=== PATIENT | male | born 1955 | race Caucasian/White ===

== ENCOUNTER → 2025-03-16 08:39 | Outpatient (REF) | payer MEDICARE, OTHER, SELFPAY ==
[2025-03-16 10:00] LABS: % Basophils 0.5 % (0-2); % Eosinophils 3.4 % (0-6); % Immature Granulocytes 0.5 % (0-0.5); % Lymphocytes 21.6 % (20.5-51.1); % Monocytes 12.2 % (1.7-9.3); % Neutrophils 61.8 % (42.2-75.2); Absolute Eosinophils 0.3 10^3/uL (0-0.7); Absolute Lymphocytes 1.6 10^3/uL (1.2-3.4); Absolute Monocytes 0.9 10^3/uL (0.1-0.6); Absolute Neutrophils 4.5 10^3/uL (1.4-6.5); Hematocrit 37.4 % (39.0-52.0); Hemoglobin 12.8 g/dL (13.0-18.0); Mean Corp Hgb Conc. 34.2 g/dL (33.0-37.0); Mean Corpuscular Hgb 32.2 pg (27.0-31.0); Mean Platelet Volume 10.2 fL (7.4-10.4); Nucleated Red Blood Cells % 0 % (-); Platelet Count 160 10^3/uL (130-400); Red Blood Cell Count 3.98 10^6/uL (4.70-6.10); Red Cell Dist. Width 12.2 % (11.5-14.5); White Blood Cell Count 7.4 10^3/uL (4.8-10.8)
[2025-03-16 10:13] LABS: ALT (SGPT) 24 U/L (0-50); AST (SGOT) 25 U/L (17-59); Albumin 4.2 g/dl (3.5-5.0); Alkaline Phosphatase 56 U/L (38-126); Blood Urea Nitrogen 27 mg/dl (9-20); Calcium 9.8 mg/dl (8.4-10.2); Carbon Dioxide 24 mmol/L (22-30); Chloride 108 mmol/L (98-107); Glucose 161 mg/dl (70-99); INR 1.01; Magnesium 1.6 mg/dl (1.6-2.3); PT 13.8 Sec (11.4-14.6); Potassium 4.6 mmol/L (3.5-5.1); Sodium 142 mmol/L (135-145); Total Bilirubin 0.7 mg/dl (0.2-1.3); Total Protein 6.8 g/dl (6.3-8.2); eGFR 54.75
== END ==
LOC: SDSPAT 08:39
PROVIDERS: ATTENDING PHYSICIAN Internal Medicine Cardiovascular Disease; FAMILY PHYSICIAN Family Medicine; OTHER PHYSICIAN Internal Medicine Cardiovascular Disease
DX: I48.19 Other persistent atrial fibrillation (principal)
CPT/HCPCS: 36415; 75572; 80053; 83735; 85025; 85610; 86850; 86900; 86901; 93005; Q9967

== ENCOUNTER 2025-03-30 07:24 | Day surgery (SDC) | payer MEDICARE, OTHER, SELFPAY ==
[2025-03-16 09:24] VITALS: BMI 37.3
[2025-03-30] VITALS (12 sets, daily range): BP systolic 113–171; BP diastolic 67–82
--- NOTE | 2025-03-30 08:01 | ITS.CL.ABL ---
Ecologist - Ablation
Ablation
Procedure Report:
ELECTROPHYSIOLOGIC STUDY AND POSSIBLE ABLATION
DATE: March 30, 2025
Primary Care Provider: Dr Ivan Tucker
Primary As400 Administrator: Dr. Hawa Gibson
INDICATION:
Symptomatic Atrial Fibrillation.
Persistent
HISTORY: See H and P.
Symptomatic AF, poorly controlled with attempted medical therapy
HAS-BLED: 2
Age
Abnormal Renal Function
CHADSVASc: 4
CHF, NYHA Class 2, LVEF 45% (HFrEF)
HTN
Age
DM
PRESENTING RHYTHM: SR
HISTORY: See H and P.
Symptomatic AF, poorly controlled with attempted medical therapy.
He was referred for electrophysiologic consultation from Dr. Hawa Gibson regarding symptomatic atrial fibrillation.
Atrial fibrillation has been associated with a clinical syndrome of congestive heart failure, HFrEF.
He is currently treated with amiodarone for rhythm control.�
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
There is concern given his age regarding long-term toxicity effects of amiodarone and he is referred for electrophysiologic evaluation to consider PVI.
CHADSAVASc =� 4 (CHF, HTN, Age, DM)
He has been maintained on Eliquis 5 mg twice daily for atrial fibrillation related thromboembolic risk reduction.
He is treated with amlodipine for hypertension.
He has a noninfarct related cardiomyopathy with LVEF on echocardiogram of 45%, done while he is in atrial fibrillation.�
Left atrium is noted to be moderately dilated and the right atrium is mildly dilated.� There is mild to moderate aortic stenosis with peak and mean gradients of 30 and 18 mmHg. There was concern for possible amyloid cardiac involvement and is noted
that an amyloid scan was performed and was negative. This was August 02, 2024.
ANTIARRHYTHMIC DRUG: Amiodarone
ANTICOAGULATION: Eliquis 5 mg twice daily
'TIME-OUT': called and confirmed.
SEDATION/ANESTHESIA: provided via the anesthesia department using general anesthesia.
PROCEDURE:
Ultrasound Guidance with real-time visualization of needle insertion and vessel patency performed by ia for femoral venous Vascular Access.
Under real-time US guidance, the needle was advanced with negative pressure into the vein. The needle was seen entering the vessel lumen with a good return of dark red flow, the syringe was removed, non-pulsatile, dark red blood low was noted and
the wire was passed without difficulty, then the needle was removed. US confirmed the wire was in the vein, not going into an artery,
Images were taken and saved for the patient's permanent record. Imaging findings typical femoral venous anatomy. Direct visualization of needle puncture into the femoral vein was observed and recorded.
A decapolar CS catheter was placed within the CS for mapping and pacing.
The intracardiac ultrasound catheter was positioned in the RA for continuous intracardiac ultrasound imaging.
Heparin bolus and infusion to target ACT at 300 -350 seconds was administered. Transseptal puncture was performed. This entailed advancing a sheath with dilator into the superior vena cava and withdrawing both (monitoring intracardiac ultrasound,
fluoroscopy and tip pressure) with the tip oriented toward the atrial septum. The fossa ovalis was engaged (indicated by sudden displacement of the sheath tip as well as tenting of the fossa seen on intracardiac ultrasound).
The [employer] transseptal system was used. Left atrial catheter position was confirmed by echocardiographic imaging and fluoroscopy followed by RF delivery using the [employer] system resulting in successful LA access with pressure monitoring
demonstrating LA pressure waveforms (LA mean pressure 11 mm Hg). The sheath was advanced over the dilator and positioned in the left atrium.
The [employer] multipolar mapping catheter was initially positioned through the transseptal sheath for high density mapping.
Geometry and voltage mapping was performed using the [employer] multipolar grid catheter. Ensite-X was utilized for three-dimensional electroanatomical mapping.
A 3-D map was created using Ens[employer] in Voxel mode. A 3-D reconstructed CT image was compared to the 3-D [employer] map to assist in anatomic evaluation, mapping and ablation.
The [employer] PFA catheter and system was used for cardiac ablation. Catheter positioning was guided and confirmed using both I.C.E. and fluoroscopy.
PV isolation approach was used to electrically isolate each PV ostia (LSPV, LIPV, RSPV, RIPV).
Additional energy applications/additional ablation set was required to accomplish wide area circumferential ablation around each of the pulmonary vein sets and additionally ablation to accomplish LA posterior wall ablation.
Remapping with the [employer] multipolar grid catheter found that all PVPs were eliminated at each vein demonstrating entrance block. Also pacing from the multipolar mapping catheter around the the circumference of the ostia was performed at 10 ma and
2.0 msec output to assess for exit block. This demonstrated electrical isolation at each of the pulmonary vein ostia (LSPV, LIPV, RSPV, RIPV). There is also entrance and exit block at the LA posterior wall.
Programmed electrostimulation which included burst atrial pacing as well as delivery of atrial decremental extrastimuli down to atrial ERP failed to induce any sustained arrhythmias.
I.C.E. :
Pre-Ablation Post-Ablation
LVEF: 55 % 55 %
WMA: none none
Pericardial effusion: none none
COMPLICATIONS:
None
SUMMARY:
- Mapping and ablation to isolate the PVs
- Additional AF ablation set after PVI.
- 3-D Electroanatomical Mapping
- Intracardiac Ultrasound
- Ultrasound guidance for vascular access
Post ablation, I discussed today's findings and results with the patient's , Sasha.
RECOMMENDATIONS:
- Observe in monitored bed.
- Maintain oral anticoagulation.
- Discontinue amiodarone
- Maintain beta-lakisha for now, if there is concern over symptomatic bradycardia beta-lakisha dose can be reduced
- Office visit has been scheduled with me for August 11, 2025 to reassess him post procedure.
- Continue cardiovascular care with Dr. Hawa Gibson
Copy to:
Dr Ivan Tucker
Dr. Hawa Gibson
[2025-03-30 08:07] LABS: Glucose - Point of Care 173 mg/dl (70-99)
[2025-03-30 09:52] LABS: Glucose - Point of Care 147 mg/dl (70-99)
[2025-03-30 09:54] LABS: ACT-LR - POC 269 Seconds (116-155)
[2025-03-30 10:09] LABS: ACT-LR - POC 287 Seconds (116-155)
[2025-03-30 10:23] LABS: ACT-LR - POC 329 Seconds (116-155)
--- NOTE | 2025-03-30 16:20 | W.PN.UPDATE ---
Update Note
Progress Note Update
Pt seen post PFA. RFV without ht/bleeding, oob ambulating, urinating without difficulty. POst EKG Sb/NSR 50-60s no acute changes. Resume eliquis tonight at usual time. Will discontinue amiodarone at this time. Followup at [facility] as scheduled and with
Dr. Gibson thereafter. Home today if groin site/tele remain stable.
== END 2025-03-30 15:30 | disposition home or self-care (01) ==
LOC: CATH 07:24
PROVIDERS: ATTENDING PHYSICIAN Internal Medicine Cardiovascular Disease; FAMILY PHYSICIAN Family Medicine; OTHER PHYSICIAN Internal Medicine Cardiovascular Disease
DX: I48.19 Other persistent atrial fibrillation (principal); I11.0 Hypertensive heart disease with heart failure; I50.22 Chronic systolic (congestive) heart failure; E78.00 Pure hypercholesterolemia, unspecified; I25.10 Atherosclerotic heart disease of native coronary artery without angina pectoris; I35.0 Nonrheumatic aortic (valve) stenosis; I42.9 Cardiomyopathy, unspecified; E03.9 Hypothyroidism, unspecified; E11.40 Type 2 diabetes mellitus with diabetic neuropathy, unspecified; K21.9 Gastro-esophageal reflux disease without esophagitis; R42 Dizziness and giddiness; E04.1 Nontoxic single thyroid nodule; N40.0 Benign prostatic hyperplasia without lower urinary tract symptoms; E66.9 Obesity, unspecified; Z68.37 Body mass index [BMI] 37.0-37.9, adult; Z87.891 Personal history of nicotine dependence; Z86.73 Personal history of transient ischemic attack (TIA), and cerebral infarction without residual deficits; Z86.0100 Personal history of colon polyps, unspecified; Z79.01 Long term (current) use of anticoagulants; Z79.84 Long term (current) use of oral hypoglycemic drugs
CPT/HCPCS: C1732; C1894; C1769; C1730; C1892; C1733; C1766; 82962; 85347; 86900; 86901; 93005; 93656; 93657